=== PATIENT | male | born 1990 | race Caucasian/White ===

== ENCOUNTER 2021-02-26 16:30 | Emergency (ER) | payer MEDICAID ==
[~2021-02-26] VITALS: Ht 180.3 cm; Wt 77.7 kg
[2021-02-26 19:09] VITALS: BP 128/89
== END 2021-02-26 19:08 | disposition home or self-care (01) ==
LOC: ER 16:31
DX: S00.83XA Contusion of other part of head, initial encounter (principal); H53.8 Other visual disturbances; R62.50 Unspecified lack of expected normal physiological development in childhood; Y04.2XXA Assault by strike against or bumped into by another person, initial encounter; Y93.89 Activity, other specified; Y92.89 Other specified places as the place of occurrence of the external cause; Y99.8 Other external cause status
CPT/HCPCS: 70450; 99284